=== PATIENT | female | born 1980 | race African-American/Black ===

== ENCOUNTER 2018-04-05 13:33 | Emergency (ER) | payer MEDICARE, MEDICAID ==
[~2018-04-05] VITALS: Ht 154.9 cm; Wt 58.0 kg
[2018-04-05] MEDS ORDERED: SODIUM CHLORIDE 0.9% 1,000 ML IV ONE (20:32)
[2018-04-05 21:50] LABS: CHLORIDE 108 mEq/L (98-107)
[2018-04-05 21:52] LABS: BASOPHILS % 0.9 % (0.0-2.0); EOSINOPHILS % 1.5 % (0.0-5.0); HEMATOCRIT. 34.2 % (36.0-48.0); HEMOGLOBIN. 11.9 g/dL (12.0-16.0); LYMPHOCYTES % 22.6 % (20.0-50.0); MEAN CORPUSCULAR HEMOGLOBIN 32.7 pg (28.0-32.0); MEAN CORPUSCULAR VOLUME 94.1 fL (81.0-99.0); MEAN PLATELET VOLUME 9.6 fl (7.4-10.4); PLATELET 209 x1000/uL (130-400); RED BLOOD CELL COUNT 3.63 mill/uL (4.2-5.4); RED CELL DISTRIBUTION WIDTH 13.3 % (11.6-14.6)
[2018-04-05 22:06] LABS: CLARITY URINE CLOUDY (CLEAR); COLOR URINE YELLOW (YELLOW); KETONES URINE 2+ (NEGATIVE); LEUKOCYTE ESTERASE URINE NEGATIVE (NEGATIVE); NITRITE URINE NEGATIVE (NEGATIVE); OCCULT BLOOD URINE NEGATIVE (NEGATIVE); PROTEIN URINE NEGATIVE (NEGATIVE); SPECIFIC GRAVITY URINE 1.026 (1.005-1.030); UROBILINOGEN URINE 0.2 E.U./dL (0.2-1.0)
[2018-04-05 22:16] LABS: B-HCG QUANTITATIVE 18322 mIU/mL (<3)
[2018-04-06] MEDS ORDERED: NITROFURANTOIN 100MG M/M CAPSULE PO ONE
[2018-04-06 00:26] VITALS: BP 104/77
[2018-04-08 07:17] LABS: CHLAMYDIA TRACHOMATIS NAA Negative (Negative); NEISSERIA GONORRHOEAE NAA Negative (Negative)
== END 2018-04-06 00:36 | disposition home or self-care (01) ==
LOC: ER 14:12
DX: N39.0 Urinary tract infection, site not specified (principal); F17.200 Nicotine dependence, unspecified, uncomplicated; F12.10 Cannabis abuse, uncomplicated
CPT/HCPCS: 36415; 76801; 80053; 81003; 81025; 84702; 85025; 86850; 86900; 86901; 87491; 87591; 99285; J7030; 99284

== ENCOUNTER 2018-06-17 08:06 | Inpatient (IN) | payer OTHER, MEDICAID ==
[~2018-06-17] VITALS: Ht 160 cm; Wt 59.0 kg
[2018-06-17] MEDS ORDERED: PREN1TAB78 PO (08:12)
[2018-06-17 09:44] LABS: CLARITY URINE TURBID (CLEAR); KETONES URINE 4+ (NEGATIVE); LEUKOCYTE ESTERASE URINE 3+ (NEGATIVE); NITRITE URINE NEGATIVE (NEGATIVE); OCCULT BLOOD URINE 3+ (NEGATIVE); PROTEIN URINE 3+ (NEGATIVE); SPECIFIC GRAVITY URINE 1.022 (1.005-1.030); UROBILINOGEN URINE 0.2 E.U./dL (0.2-1.0)
[2018-06-17 09:47] LABS: COLOR URINE YELLOW (YELLOW)
[2018-06-17] MEDS ORDERED: LACTATED RINGERS 1,000 ML IV SCH (09:55)
[2018-06-17] MEDS ORDERED: DEXT 5%/LR + PITOCIN 20UNITS/L 1,000 ML IV SCH ×2 (09:55→13:10)
[2018-06-17] MEDS ORDERED: CARBOPROST TROMETHAMINE 250 MCG/ML AMPUL IM PRN (10:00)
[2018-06-17] MEDS ORDERED: METHYLERGONOVINE MALEATE 0.2 MG/ML IM PRN ×2 (10:00→13:15)
[2018-06-17] MEDS ORDERED: BETAMETHASONE ACET/BETAMET 30 MG/5 ML VIAL IM SCH (10:00)
[2018-06-17] MEDS ORDERED: ONDANSETRON HCL 4MG/2ML INJ IV SCH (10:40)
[2018-06-17] MEDS ORDERED: MAGNESIUM 4 G PREMIX 100 ML IV ONE ×2 (10:45)
[2018-06-17] MEDS ORDERED: MAGNESIUM 20 G PREMIX (L & D) 500 ML IV SCH ×2 (10:45→11:15)
[2018-06-17] MEDS: AZITHROMYCIN 500 MG in DEXT 5% WATER 250 ML IV SCH ×2 (11:03→23:06)
[2018-06-17 11:11] LABS: HEMATOCRIT. 33.2 % (36.0-48.0); HEMOGLOBIN. 11.2 g/dL (12.0-16.0); MEAN CORPUSCULAR VOLUME 95.1 fL (81.0-99.0); MEAN PLATELET VOLUME 10.2 fl (7.4-10.4); PLATELET 186 x1000/uL (130-400); RED BLOOD CELL COUNT 3.49 mill/uL (4.2-5.4)
[2018-06-17 11:36] LABS: PROTHROMBIN TIME 9.8 sec (9.1-11.1)
[2018-06-17 11:57] LABS: PLATELET ESTIMATE NORMAL
[2018-06-17] MEDS ORDERED: CITRIC ACID/SODIUM CITRATE SOLN 30ML UDC PO SCH (12:00)
[2018-06-17] MEDS ORDERED: MORPHINE SULFATE/PF 1MG/ML 10ML AMP ONE (12:16)
[2018-06-17] MEDS ORDERED: PHENYLEPHRINE HCL 10 MG/ML 1ML (IV VIAL) IV ONE (12:16)
[2018-06-17] MEDS ORDERED: OXYTOCIN 10 UNITS/ML 1ML ONE (12:16)
[2018-06-17] MEDS ORDERED: SODIUM CHLORIDE 0.9% 10ML VIAL ONE ×2 (12:16→12:19)
[2018-06-17] MEDS ORDERED: CEFAZOLIN SODIUM 1000MG/VIAL ONE (12:16)
[2018-06-17] MEDS ORDERED: EPHEDRINE SULFATE 50MG/ML VIAL ONE (12:16)
[2018-06-17 13:05] LABS: HEPATITIS B SURFACE ANTIGEN NEGATIVE
[2018-06-17] MEDS ORDERED: IBUPROFEN 400MG TABLET PO PRN (13:15)
[2018-06-17] MEDS ORDERED: LANOLIN OINT 0.25 GM TUBE TOP PRN (13:15)
[2018-06-17] MEDS ORDERED: RHO(D) IMMUNE GLOBULIN 300 MCG/SYR IM PRN (13:15)
[2018-06-17] MEDS: IBUPROFEN 800MG TABLET PO PRN ×2 (13:34→19:25)
[2018-06-17 15:00] VITALS: BP_SYST 100; BP_SYST 94; BP_DIAS 54; BP_DIAS 61
[2018-06-17 16:49] LABS: *AMPHETAMINES SCREEN URINE NEGATIVE (NEGATIVE); *BARBITURATES SCREEN URINE NEGATIVE (NEGATIVE); *BENZODIAZEPINES SCREEN URINE NEGATIVE (NEGATIVE); *COCAINE SCREEN URINE NEGATIVE (NEGATIVE)
[2018-06-17 16:50] LABS: METHADONE URINE SCREEN NEGATIVE (NEGATIVE); OPIATES URINE SCREEN NEGATIVE (NEGATIVE); PHENCYCLIDINE URINE SCREEN NEGATIVE (NEGATIVE)
[2018-06-17 17:06] LABS: CANNABINOID URINE SCREEN PRESUMTIVE POSITIVE (NEGATIVE)
[2018-06-17 19:29] VITALS: BP 110/63
[2018-06-17 23:34] VITALS: BP 111/57
[2018-06-18 07:04] LABS: HEMOGLOBIN. 10.3 g/dL (12.0-16.0); MEAN CORPUSCULAR VOLUME 96.2 fL (81.0-99.0); MEAN PLATELET VOLUME 9.5 fl (7.4-10.4); PLATELET 179 x1000/uL (130-400); RED BLOOD CELL COUNT 3.11 mill/uL (4.2-5.4); RED CELL DISTRIBUTION WIDTH 14.4 % (11.6-14.6)
[2018-06-18 08:00] VITALS: BP 96/52
[2018-06-18] MEDS: PRENATAL VIT/FE FUMARATE/FA TABLET PO SCH (09:10)
[2018-06-18 09:33] LABS: PLATELET ESTIMATE NORMAL
[2018-06-18 16:56] VITALS: BP 106/60
[2018-06-18 19:55] VITALS: BP 98/55
[2018-06-18] MEDS ORDERED: TETANUS, DIPHTHERIA, PERTUSSIS VAC/PF 0.5ML (>7YR OLD) IM ONE (20:15)
[2018-06-18] MEDS: AZITHROMYCIN 500 MG in DEXT 5% WATER 250 ML IV SCH (22:28)
[2018-06-18 23:54] VITALS: BP 102/66
[2018-06-19 05:00] VITALS: BP 98/67
[2018-06-19 07:40] VITALS: BP 88/42
[2018-06-19] MEDS: PRENATAL VIT/FE FUMARATE/FA TABLET PO SCH (09:00)
[2018-06-19] MEDS ORDERED: TETANUS, DIPHTHERIA, PERTUSSIS VAC/PF 0.5ML (>7YR OLD) IM ONE (11:00)
[2018-06-23 13:07] LABS: CANNABINOID CONFIRMATION URINE Positive (.)
== END 2018-06-19 13:22 | disposition home or self-care (01) | DRG 805 ==
LOC: L&D 08:06 → OBSVTOIN 08:06 → 7EST PP/OB 15:00
PROVIDERS: ADMIT Obstetrics & Gynecology; ATTEND Obstetrics & Gynecology
PROC: 10E0XZZ Delivery of Products of Conception, External Approach (ICD-10-PCS; principal; 2018-06-17 13:20)
DX: O42.912 Preterm premature rupture of membranes, unspecified as to length of time between rupture and onset of labor, second trimester (principal); O60.12X0 Preterm labor second trimester with preterm delivery second trimester, not applicable or unspecified; Z37.0 Single live birth; O99.12 Other diseases of the blood and blood-forming organs and certain disorders involving the immune mechanism complicating childbirth; O34.219 Maternal care for unspecified type scar from previous cesarean delivery; D72.829 Elevated white blood cell count, unspecified; O32.1XX0 Maternal care for breech presentation, not applicable or unspecified; Z3A.25 25 weeks gestation of pregnancy
CPT/HCPCS: 36415; 76805; 80305; 80349; 86592; 86703; 86762; 86850; 86900; 87340; 88307; 90715; A4216; G0378; J0456; J0690; J0702; J2274; J2370; J2405; J2590; J3475; J3490; J7040; J7060; J7120; A4315

== ENCOUNTER 2020-05-10 21:01 | Emergency (ER) | payer MEDICAID, MEDICARE, OTHER ==
[~2020-05-10] VITALS: Ht 154.9 cm; Wt 62.0 kg
[2020-05-10] MEDS ORDERED: TRAMADOL 50MG TABLET PO ONE (23:00)
[2020-05-11 00:23] VITALS: BP 135/80
== END 2020-05-11 00:23 | disposition home or self-care (01) ==
LOC: ER 21:01
DX: S50.11XA Contusion of right forearm, initial encounter (principal); F12.10 Cannabis abuse, uncomplicated; Z98.890 Other specified postprocedural states; V49.40XA Driver injured in collision with unspecified motor vehicles in traffic accident, initial encounter; Y93.89 Activity, other specified; Y92.89 Other specified places as the place of occurrence of the external cause; Y99.8 Other external cause status
CPT/HCPCS: 73030; 73090; 99284

== ENCOUNTER 2020-06-15 12:39 | Emergency (ER) | payer MEDICARE ==
[~2020-06-15] VITALS: Ht 154.9 cm; Wt 64.0 kg
[2020-06-15 12:44] VITALS: BP 128/76
[2020-06-15] MEDS ORDERED: KETOROLAC 30MG/ML VIAL IM ONE (13:00)
== END 2020-06-15 16:32 | disposition home or self-care (01) ==
LOC: ER 12:39
DX: M54.9 Dorsalgia, unspecified (principal); M54.2 Cervicalgia; F12.10 Cannabis abuse, uncomplicated
CPT/HCPCS: 81025; 96372; 99283; J1885

== ENCOUNTER → 2023-06-12 | Emergency (ER) | payer MEDICAID, OTHER ==
[~2023-06-12] VITALS: Ht 154.9 cm; Wt 59.0 kg
[~2023-06-12] MED LIST: HYDR4CRE2 TP; IBUPROFEN 800MG TABLET PO ONE; ONDANSETRON 4MG ODT PO ONE
[2023-06-12 11:23] VITALS: BP 117/67; PULSE 73; RESP 16; TEMP 98.6; O2SAT 100
== END ==
LOC: ER 11:08
DX: L30.9 Dermatitis, unspecified (principal)
CPT/HCPCS: 99281; 99282

== ENCOUNTER 2023-07-01 21:16 | Emergency (ER) | payer MEDICAID, OTHER ==
[~2023-07-01] VITALS: Ht 154.9 cm; Wt 59.0 kg
[~2023-07-01 21:16] MED LIST changes: -IBUPROFEN 800MG TABLET PO ONE; -ONDANSETRON 4MG ODT PO ONE
[2023-07-01 21:29] VITALS: BP 118/72; PULSE 92; RESP 16; TEMP 98.5; O2SAT 100
[2023-07-01] MEDS ORDERED: ACETAMINOPHEN 325MG TABLET PO ONE (23:15)
[2023-07-01] MEDS ORDERED: PERMETHRIN 5% CREAM 60GM TOP ONE (23:15)
== END 2023-07-02 02:05 | disposition home or self-care (01) ==
LOC: ER 21:16
DX: B86 Scabies (principal); F12.90 Cannabis use, unspecified, uncomplicated; Z98.890 Other specified postprocedural states
CPT/HCPCS: 99282

== ENCOUNTER 2024-04-10 14:22 | Emergency (ER) | payer MEDICAID, OTHER ==
[~2024-04-10] VITALS: Ht 149.9 cm; Wt 61.0 kg
[2024-04-10 14:38] VITALS: O2SAT 99
[2024-04-10] MEDS ORDERED: ACETAMINOPHEN 325MG TABLET PO ONE (16:15)
[2024-04-10 17:35] VITALS: TEMP 98.6
[2024-04-10] MEDS: FLUORESCEIN SODIUM 1MG/STRIP LEFTEYE ONE (17:35)
[2024-04-10] MEDS: ACETAMINOPHEN 500MG TABLET PO ONE (17:35)
[2024-04-10] MEDS: TETRACAINE 0.5% OPHTH DROPS 4ML LEFTEYE ONE (17:35)
[2024-04-10] MEDS ORDERED: OCUFLX LEFTEYE (17:55)
[2024-04-10 18:13] VITALS: BP 116/83; PULSE 70; RESP 11; O2SAT 100
== END 2024-04-10 18:18 | disposition home or self-care (01) ==
LOC: ER 14:22
DX: S05.02XA Injury of conjunctiva and corneal abrasion without foreign body, left eye, initial encounter (principal); H10.89 Other conjunctivitis; F12.90 Cannabis use, unspecified, uncomplicated; Z98.890 Other specified postprocedural states; X58.XXXA Exposure to other specified factors, initial encounter; Y93.89 Activity, other specified; Y92.89 Other specified places as the place of occurrence of the external cause; Y99.8 Other external cause status
CPT/HCPCS: 81025; 99283

== ENCOUNTER 2025-05-17 10:08 | Emergency (ER) | payer OTHER ==
[~2025-05-17] VITALS: Ht 160 cm; Wt 77.0 kg
[~2025-05-17 10:08] MED LIST changes: +OCUFLX LEFTEYE
[2025-05-17 10:14] VITALS: O2SAT 99
[2025-05-17] MEDS: FLUORESCEIN SODIUM 1MG/STRIP LEFTEYE ONE (10:46)
[2025-05-17] MEDS: TETRACAINE 0.5% OPHTH DROPS 4ML BOTHEYE ONE (10:46)
[2025-05-17] MEDS ORDERED: DEXT15DR28 LEFTEYE (12:10)
[2025-05-17] MEDS: KETOROLAC 30MG/ML VIAL IM ONE (12:39)
[2025-05-17 12:42] VITALS: BP 139/77; PULSE 61; RESP 18; TEMP 36.9; O2SAT 100
== END 2025-05-17 12:52 | disposition home or self-care (01) ==
LOC: ER 10:08
DX: H15.092 Other scleritis, left eye (principal); F12.90 Cannabis use, unspecified, uncomplicated; Z98.890 Other specified postprocedural states
CPT/HCPCS: 99283; 96372; J1885

== ENCOUNTER 2025-08-13 14:17 | Emergency (ER) | payer OTHER ==
[~2025-08-13] VITALS: Ht 165.1 cm; Wt 68.0 kg
[~2025-08-13 14:17] MED LIST changes: +DEXT15DR28 LEFTEYE
[2025-08-13 14:30] VITALS: O2SAT 100
[2025-08-13 14:38] VITALS: TEMP 36.7; O2SAT 99
[2025-08-13] MEDS: TETRACAINE 0.5% OPHTH DROPS 4ML RIGHTEYE ONE (16:15)
[2025-08-13] MEDS: FLUORESCEIN SODIUM 1MG/STRIP RIGHTEYE ONE (16:15)
[2025-08-13] MEDS ORDERED: IBUP-1455 MT (17:33)
[2025-08-13] MEDS ORDERED: OCUFLX LEFTEYE (17:33)
[2025-08-13 18:17] VITALS: BP 130/81; PULSE 77; RESP 18
[2025-08-13] MEDS: IBUPROFEN 600MG TABLET PO NR (18:17)
== END 2025-08-13 19:11 | disposition home or self-care (01) ==
LOC: ER 14:17
DX: H10.9 Unspecified conjunctivitis (principal); G93.2 Benign intracranial hypertension; E11.9 Type 2 diabetes mellitus without complications; F12.90 Cannabis use, unspecified, uncomplicated; Z79.899 Other long term (current) drug therapy
CPT/HCPCS: 99283